=== PATIENT | female | born 1980 | race African-American/Black ===

== ENCOUNTER 2021-03-31 07:49 | Emergency (ER) | payer OTHER ==
[~2021-03-31] VITALS: Ht 160 cm; Wt 73.7 kg
[2021-03-31] MEDS ORDERED: IBUPROFEN400 MG PO (08:04)
== END 2021-03-31 08:43 | disposition home or self-care (01) ==
LOC: ED 07:49
DX: S83.91XA Sprain of unspecified site of right knee, initial encounter (principal); X50.1XXA Overexertion from prolonged static or awkward postures, initial encounter
CPT/HCPCS: 73560; 99283-25

== ENCOUNTER 2021-07-14 11:32 | Emergency (ER) | payer OTHER ==
[~2021-07-14] VITALS: Ht 160 cm; Wt 71.0 kg
[~2021-07-14 11:32] MED LIST: IBUPROFEN400 MG PO
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
[2021-07-14] MEDS ORDERED: ATIVAN1 MG PO (12:01)
== END 2021-07-14 12:21 | disposition home or self-care (01) ==
LOC: ED 11:32
DX: F43.9 Reaction to severe stress, unspecified (principal); I10 Essential (primary) hypertension
CPT/HCPCS: 99283; A9270